=== PATIENT | female | born 1990 | race African-American/Black ===

== ENCOUNTER 2024-01-16 19:04 | Emergency (ER) | payer MEDICAID ==
[~2024-01-16] VITALS: Ht 162.6 cm; Wt 71.4 kg
[2024-01-16 19:18] VITALS: TEMP 98.5
[2024-01-16 19:30] LABS: GLUCOMETER DEV NAME(LOC) ER.7; GLUCOSE,POINT OF CARE 160 MG/DL (70-110)
[2024-01-16] MEDS: MORPHINE SULFATE 2 MG/ML SYRINGE IVP ONE ×2 (20:40→20:58)
[2024-01-16] MEDS: ACETAMINOPHEN 500 MG TABLET PO ONE (20:40)
[2024-01-16] MEDS: ONDANSETRON HCL 4 MG/2 ML VIAL IVP ONE (20:41)
[2024-01-16] MEDS: SODIUM CHLORIDE 0.9% 1,000 ML IV ONE (20:41)
[2024-01-16 21:19] VITALS: BP 122/67; PULSE 64; RESP 16; O2SAT 100
[2024-01-16] MEDS ORDERED: IBUP-1492 PO (21:43)
[2024-01-16] MEDS ORDERED: ACET-3385 PO (21:43)
[2024-01-16 23:43] LABS: BASOPHILS % (AUTO) 0.6 % (0.0-2.0); EOSINOPHILS % (AUTO) 1.8 % (1.0-6.0); HEMATOCRIT 27.6 % (36-46); HEMOGLOBIN 8.3 g/dL (12.0-16.0); LYMPHOCYTES % (AUTO) 20.3 % (22.0-44.0); MEAN CORPUSCULAR HEMOGLOBIN 20.7 pg (26.0-34.0); MEAN CORPUSCULAR HGB CONC 30.1 G/dL (31.0-37.0); MEAN CORPUSCULAR VOLUME 69 fL (80-100); MONOCYTES # (AUTO) 0.8 K/uL (0.1-1.0); MONOCYTES % (AUTO) 8.3 % (2.0-9.0); NEUTROPHILS # (AUTO) 6.9 K/uL (1.8-7.7); PLATELET COUNT (AUTO) 301 K/uL (150-450); RED BLOOD CELL COUNT(AUTO) 4.01 MIL/uL (4.00-5.20); RED CELL DISTRIBUTION WIDTH 19.4 % (11.5-14.5)
[2024-01-16 23:47] LABS: ANION GAP 7 mmol/L (8-16); CARBON DIOXIDE 29 mmol/L (22-29); CHLORIDE 106 mmol/L (98-107); CREATININE 0.73 mg/dL (0.60-1.30); GLOMERULAR FILTR. RATE CALC > 60 mL/min (>60); GLUCOSE,RANDOM 123 mg/dL (70-110); POTASSIUM 3.7 mmol/L (3.5-5.1); SODIUM SERUM 142 mmol/L (136-145); UREA NITROGEN, BLOOD 9 mg/dL (7-18)
[2024-01-16 23:49] LABS: ALCOHOL, BLOOD (SERUM) < 3 mg/dL (0-10)
[2024-01-16 23:51] LABS: B-TYPE NATRIURETIC PEPTIDE < 5 pg/mL (0-100)
[2024-01-16 23:53] LABS: ALANINE AMINOTRANSFERASE 19 U/L (12-78); ALBUMIN 2.8 g/dL (3.4-5.0); ALKALINE PHOSPHATASE 52 U/L (46-116); ASPARTATE AMINOTRANSFERASE 20 U/L (15-37); BILIRUBIN,TOTAL 0.2 mg/dL (0.1-1.0); CREATINE KINASE, TOTAL ONLY 57 U/L (26-192); TOTAL PROTEIN, SERUM 6.6 g/dL (6.4-8.2)
[2024-01-16 23:55] LABS: TROPONIN I-HIGH SENSITIVITY Less Than 4 ng/L (<51)
[2024-01-17 02:27] LABS: PATHOLOGY REVIEW, DIFF A; RBC MORPHOLOGY COMMENT ABNORMAL RBC MORPH
== END 2024-01-17 04:03 | disposition home or self-care (01) ==
LOC: EMS 19:04
DX: S82.831A Other fracture of upper and lower end of right fibula, initial encounter for closed fracture (principal); R55 Syncope and collapse; R51.9 Headache, unspecified; F12.90 Cannabis use, unspecified, uncomplicated; F17.210 Nicotine dependence, cigarettes, uncomplicated; X50.1XXA Overexertion from prolonged static or awkward postures, initial encounter; Y93.89 Activity, other specified; Y92.89 Other specified places as the place of occurrence of the external cause; Y99.8 Other external cause status
CPT/HCPCS: 99285; 70450; 96374; 29515; 71045; 96361; 96375; 80053; 82550; 82962; 83880; 84484; 84703; 85025; 73590; 73610; 73630; 72125; 93005; G0480; J2270; J2405; J7030